=== PATIENT | female | born 1975 | race American Indian/Alaskan Native ===

== ENCOUNTER 2016-07-29 08:30 | Emergency (ER) | payer SELFPAY ==
[2016-07-29 09:05] VITALS: BP 161/113
--- NOTE | 2016-08-01 15:43 | ED Elopement Review ---
ED Pt Elopement review - Call Back decision Pt Call Back Decision: No action required
== END 2016-07-29 09:51 | disposition left against medical advice (07) ==
LOC: ED 08:30
DX: R00.2 Palpitations (principal); R11.10 Vomiting, unspecified; F41.9 Anxiety disorder, unspecified; Z53.21 Procedure and treatment not carried out due to patient leaving prior to being seen by health care provider
CPT/HCPCS: 93005; 93010

== ENCOUNTER 2017-10-18 18:58 | Emergency (ER) | payer SELFPAY ==
[2017-10-18 19:19] VITALS: BP 131/88
[2017-10-18] MEDS ORDERED: ASPIRIN PO ONE (19:19)
[2017-10-18 19:35] LABS: Basophils % (Auto) 0.4 % (0.0-1.8); Eosinophils # (Auto) 0.2 K/mm3 (0.0-0.4); Eosinophils % (Auto) 2.3 % (0.0-4.3); Hematocrit 41.4 % (30.3-42.9); Hemoglobin 13.5 gm/dl (10.1-14.3); Lymphocytes # (Auto) 2.3 K/mm3 (1.2-5.4); Lymphocytes % (Auto) 22.2 % (13.4-35.0); Mean Corpuscular HGB Conc 33 % (30-34); Mean Corpuscular Hemoglobin 27 pg (28-32); Mean Corpuscular Volume 82 fl (79-97); Monocytes # (Auto) 0.7 K/mm3 (0.0-0.8); Monocytes % (Auto) 6.5 % (0.0-7.3); Platelet Count 268 K/mm3 (140-440); Red Blood Count 5.06 M/mm3 (3.65-5.03); Red Cell Distribution Width 14.2 % (13.2-15.2)
[2017-10-18 19:57] LABS: BUN/Creatinine Ratio 21; Blood Urea Nitrogen 15 mg/dL (7-17); Calcium 9.3 mg/dL (8.4-10.2); Hemolysis Index 9
== END 2017-10-18 22:00 | disposition left against medical advice (07) ==
LOC: ED 18:58
DX: R07.9 Chest pain, unspecified (principal); Z53.21 Procedure and treatment not carried out due to patient leaving prior to being seen by health care provider
CPT/HCPCS: 36415; 80048; 84484; 85025; 93005; 93010

== ENCOUNTER 2017-10-23 15:14 | Outpatient (CLI) | payer OTHER ==
--- NOTE | 2017-10-23 23:33 | XRay Report ---
FINAL REPORT PROCEDURE: XR KNEE BILAT 4+V TECHNIQUE: Bilateral knee radiographs, 4 or more views, including AP, lateral, sunrise and oblique views. HISTORY: Bilateral knee pain. COMPARISON: No prior studies are available for comparison. FINDINGS: Right Fracture (s) and/or Dislocation(s): None . Alignment: Mild genu varum. Slight lateral tibial translation. Joint space(s): Moderate to severe medial compartment narrowing with osteophytes. Mild to moderate lateral and patellofemoral compartment narrowing and osteophytes. Small joint effusion. Tibial eminence spurring. Soft tissues: Normal. Bone mineralization: Osteopenia Foreign bodies: None. Left Fracture (s) and/or Dislocation(s): None . Alignment: Mild genu varum. Slight lateral tibial translation. Joint space(s): Moderate to severe medial compartment narrowing with osteophytes. Mild to moderate lateral and patellofemoral compartment narrowing and osteophytes. Small joint effusion. Tibial eminence spurring. Soft tissues: Normal. Bone mineralization: Osteopenia Foreign bodies: None. IMPRESSION: Osteopenia and degenerative changes of the bilateral knees (left slightly greater than right) with small joint effusions.
== END 2017-10-23 15:15 | disposition home or self-care (01) ==
LOC: SPVIMAG 15:14
PROVIDERS: ATTEND Orthopaedic Surgery
DX: M17.0 Bilateral primary osteoarthritis of knee (principal); M85.861 Other specified disorders of bone density and structure, right lower leg; M85.862 Other specified disorders of bone density and structure, left lower leg; M21.162 Varus deformity, not elsewhere classified, left knee; M21.161 Varus deformity, not elsewhere classified, right knee